=== PATIENT | female | born 2000 | race Caucasian/White ===

== ENCOUNTER 2024-12-28 16:17 | Emergency (ER) | payer OTHER ==
[~2024-12-28] VITALS: Ht 177.8 cm; Wt 95.3 kg
[2024-12-28] MEDS ORDERED: PREDNISONE20 M1 PO (17:04)
[2024-12-28] MEDS ORDERED: Acetaminophen/Oxycodone 5 MG/325 MG TABLET PO ONE (17:05)
[2024-12-28] MEDS ORDERED: methylPREDNISolone sod succ 125 MG VIAL IM ONE (17:05)
== END 2024-12-28 17:26 | disposition home or self-care (01) ==
LOC: ED 16:17
DX: M54.30 Sciatica, unspecified side (principal)